=== PATIENT | female | born 1990 ===

== ENCOUNTER → 2024-08-16 16:23 | Outpatient (AMB) | payer OTHER, SELFPAY ==
--- NOTE | 2024-08-16 16:25 | MHC.OFFWIV ---
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 While every effort has been made to ensure accuracy, physician representative errors may have been included. The patient is a 33 year old female who presents to the clinic today with left calf pain. She notes that she was playing pickleball, and had her foot planted, went to go get a ball, had a twisting motion, and felt a very sharp pain in her left calf and heard a pop. She was left unable to put pressure on the foot after that as she has a significant amount of pain in the calf. She was injured just prior to arrival to today. [facility] Social History Patient Tobacco Use Status: Never used Tobacco Review of Systems Const All systems reviewed & are unremarkable except as noted in HPI and below Physical Exam Vital Signs: Last Vital Signs Pulse 93 08/16/24 16:27 BP 122/80 08/16/24 16:27 Pulse Ox 98 08/16/24 16:27 Oxygen Delivery Method Room Air 08/16/24 16:27 BMI result Body Mass Index 27.4 Const General: cooperative, healthy appearing, comfortable, no acute distress and well developed Orientation/consciousness: patient oriented x3 Limitations: no limitations Skin General skin exam: no rashes or lesions noted Neuro General: patient oriented x3 Extrem Other: Negative Homans. Achilles intact. Tender to palpation approximately 6 cm above calcaneus on left, with out ecchymosis, erythema, or edema. Distal neurovascular exam intact. Strength 5/5 and leg. General: Yes normal to inspection Assessment & Plan Assessment & Plan (1) Strain of calf muscle: Code(s): S86.819A - Strain of other muscle(s) and tendon(s) at lower leg level, unspecified leg, initial encounter Qualifiers: Encounter type: initial encounter Laterality: left Qualified Code(s): S86.812A - Strain of other muscle(s) and tendon(s) at lower leg level, left leg, initial encounter Plan: Advised rest, ice, compression, elevation. Emile wrap applied, crutches provided. Likely plantar strain. Advised follow up with PCP with ongoing or worsening symptoms. Imaging not necessary based on examination. Plan See above for full details and plan. Coding Level of Care Code Est Pt Level 3 (03486) Diagnoses Strain of calf muscle, left, initial encounter S86.812A Encounter type: initial encounter Laterality: left
[2024-08-16 16:27] VITALS: BP 122/80; PULSE 93; O2SAT 98; BMI 27.4
== END ==
PROVIDERS: Visit Provider Registered Nurse
DX: S86.812A Strain of other muscle(s) and tendon(s) at lower leg level, left leg, initial encounter (principal)

== ENCOUNTER → 2024-08-16 16:23 | Outpatient (BNVA) | payer OTHER, SELFPAY | PROVIDERS: Visit Provider Registered Nurse ==

== ENCOUNTER 2025-03-17 08:05 | Outpatient (AMB) | payer OTHER, SELFPAY ==
--- OUTSIDE RECORDS SUMMARY | 2025-03-17 08:06 | XMS_ITS | Clinical Summary ---
Author Organization [facility] Address [address] [place] [id number] Phone Care Team Providers Care Habilitation Specialist Name Role Phone Unavailable Primary Care Provider Unavailabl e Immunizations Immunization Administration Dates Next Due DTaP 02/14/1995, 1,06/08/1990,04/06,01/14/1990 HPV, Quadrivalent 05/30/2008,01/28/2008,11/20/19 08 Hib (PRP-T) 03/04/1991,11/16/1990,09/07/1990 IPV 02/14/1995, 1,01/14/1991,04/06,01/14/1990 Influenza 08/19/2005 MMR 02/14/1995,03/04/1991 Meningococcal Conj (Menactra) MCV4P 11/20/2007 Td (adult) (Tenivac), 5 Lf t etanus toxoid, PF, adsorbed 07/04/2004 Varicella 1994 Family History Relation Name Status Comments Father Alive healthy Maternal Grandfather Maternal Grandmother cancer Mother Alive healthy Other Alive Siblings: 4 sib s (1 brother and 3 sisters) Paternal Grandfather Alive alzheim ers Paternal Grandmother Alive Social History Tobacco Use Types Packs/Day Years Used Date Smoking Tobacco: Never Assessed Comments Unknown Sex and Gender Information Value Date Recorded Sex Assigned at Not on file Legal Sex Female 6:09 PM EDT Gender Identity Not on file Sexual Orientation Not on file Plan of Treatment Health Maintenance Due Date Last Done Comments Varicella Vaccines (2 of 2 - 2-dose childhood series) 03/14/1995 1994 DTaP,Tdap,and Td Vaccines (6 - Tdap) 07/05/2004 07/04/2004, 02/14/1995, 09/28/1991, Additional history exists Hepatitis B Vaccines (1 of 3 - 19+ 3-dose series) 2008 Influenza Vaccines (#1) 2024 08/19/2005 COVID-19 Vaccine (2023- season) 2024 HIB Vaccines Completed 03/04/1991, 10/28, 09/07/1990 IPV Vaccines Completed 02/14/1995, 12/1990, 01/14/1991, Additional history exists MMR Vaccines Completed 02/14/1995, 03/04/1991 Meningococcal Vaccine Completed 11/20/2007 HPV Vaccines Completed 05/30/2008, 12/2007, 11/20/2007 Hepatitis A Vaccines Aged Out No long er eligible based on patient's age to complete this topic Men B Vaccine Aged Out No longer elig ible based on patient's age to complete this topic Pneumococcal Vaccine Aged Out No long er eligible based on patient's age to complete this topic
--- OUTSIDE RECORDS SUMMARY | 2025-03-17 08:06 | XMS_ITS | Encounter Summary ---
Author Organization [facility] Address [address] [place] [id number] Phone Care Team Providers Care Police Artist Name Role Phone Unavailable Primary Care Provider Unavailabl e Encounter Details Date Type Department Care Team (Late st Contact Info) Description 03/15/2018 Conversion Encounter [facility] [address] [id number] Social History Tobacco Use Types Packs/Day Years Used Date Smoking Tobacco: Never Assessed Comments Unknown Sex and Gender Information Value Date Recorded Sex Assigned at Not on file Legal Sex Female 6:09 PM EDT Gender Identity Not on file Sexual Orientation Not on file documented as of this encounter Plan of Treatment Not on file documented as of this encounter Visit Diagnoses Not on filedocumented in this encounter
--- NOTE | 2025-03-17 08:36 | AM.OFFWIN_ITS ---
Intake Vital Signs 03/17/25 08:46 Weight 145 lb BP 110/74 Blood Pressure Location Lt brachial Position Sitting Pulse 72 Pulse Source Pulse Oximeter Temp 97.8 F Temp Source Oral Pulse Oximetry (%) 99 Oxygen Delivery Method Room Air Intake Visit Reasons: EP Sore throat, bilat ear pain Intake Note: Patient here for sore throat, chest congestion and bilat ear pain that started about 3-4 days ago. Patient Tobacco Use Status: Never used Tobacco Allergies doxycycline Adverse Reaction (Mild, Verified 03/17/25 08:49) Nausea and Vomiting Do you need a note to return to daycare/school/sports/work: No HPI HPI Comments History of Present Illness Details 34 y/o Female patient who presents to [facility] walk [facility] clinic with c/o Sore throat, chest congestion and B/L ear pain that started about 3-4 days ago. Reports Nasal congestion and runny nose. REPLACED BY [facility] Medical History (Updated 03/17/25 @ 09:54 by Kimber Aguilar NP) Seasonal allergies Acute pharyngitis Social History Patient Tobacco Use Status: Never used Tobacco Review of Systems Const All systems reviewed & are unremarkable except as noted in HPI and below Physical Exam Vital Signs: Last Vital Signs Temp 97.8 F 03/17/25 08:46 Pulse 72 03/17/25 08:46 BP 110/74 03/17/25 08:46 Pulse Ox 99 03/17/25 08:46 Oxygen Delivery Method Room Air 03/17/25 08:46 Const General: no acute distress Orientation/consciousness: patient oriented x3 HEENT Head: Yes normocephalic Ears: external ears normal and TM abnormal bulging and with fluid behind the TM bilateral General nose exam: Abnormal mucous membranes and turbinates present erythematous Face and sinus: Yes sinuses nontender Mouth: moist mucous membranes Throat: Yes uvula midline and Yes postnasal drainage Resp Effort & Inspection: normal respiratory effort and able to speak in complete sentences Auscultation: clear to auscultation bilaterally, no crackles, no rales, no rhonchi and no wheezes Cardio Rhythm: regular rhythm Heart sounds: S1 normal heart sound present and S2 normal heart sound present Neuro General: patient oriented x3 Results AMB Rapid Strep AMB Rapid Strep Negative Last Edit by HERB Xiong on 03/17/25 09:08 Results Reviewed Results Reviewed: Laboratory Last Values Strep Scn Rapid Clinic Negative 03/17/25 09:07 Assessment & Plan Assessment & Plan (1) Acute pharyngitis: Code(s): J02.9 - Acute pharyngitis, unspecified Qualifiers: Pharyngitis/tonsillitis etiology: unspecified etiology Qualified Code(s): J02.9 - Acute pharyngitis, unspecified Plan: Rapid Strep Negative. (2) Seasonal allergies: Code(s): J30.2 - Other seasonal allergic rhinitis Plan: Ordered Shakila BID Ordered Flonase. Orders: Orders AMB Rapid Strep Screen Today Z13.9 - Encounter for screening, unspecified Medications: New fexofenadine (Shakila Allergy) 60 mg PO BID 180 tabs 0RF J30.2 - Other seasonal allergic rhinitis fluticasone propionate 50 mcg/actuation (Flonase Allergy Relief) administer into each nostril 1 spray intranasal BID 16 grams 0RF J30.2 - Other seasonal allergic rhinitis Coding Level of Care Code Est Pt Level 4 (90203) Diagnoses Acute pharyngitis, unspecified etiology J02.9 Pharyngitis/tonsillitis etiology: unspecified etiology Seasonal allergies J30.2 Time Spent (min) 20
[2025-03-17 08:46] VITALS: BP 110/74; PULSE 72; TEMP 36.6; O2SAT 99
== END 2025-03-17 10:11 | disposition home or self-care (01) ==
PROVIDERS: Visit Provider Nurse Practitioner Family
DX: J02.9 Acute pharyngitis, unspecified (principal); J30.2 Other seasonal allergic rhinitis; Z13.9 Encounter for screening, unspecified

== ENCOUNTER → 2025-03-17 08:05 | Outpatient (BNVA) | payer OTHER, SELFPAY | PROVIDERS: Visit Provider Nurse Practitioner Family | DX: J02.9 Acute pharyngitis, unspecified (principal); J30.2 Other seasonal allergic rhinitis; R09.89 Other specified symptoms and signs involving the circulatory and respiratory systems; H92.03 Otalgia, bilateral | CPT/HCPCS: 87880 ==